=== PATIENT | female | born 1930 | race Caucasian/White ===

== ENCOUNTER 2016-06-05 18:23 | Inpatient (IN) | payer MEDICARE ==
[~2016-06-05] VITALS: Ht 165.1 cm; Wt 54.0 kg
[2016-06-05] MEDS ORDERED: Neosporin Oint Ud Pkt TOP ONE (18:45)
[2016-06-05] MEDS ORDERED: TdaP Vaccine 0.5ml Syr IM ONE (18:45)
[2016-06-05] MEDS ORDERED: fentaNYL 100 mcg/2 mL IV ONE (18:45)
[2016-06-05 19:30] VITALS: BP 90/77
[2016-06-05 19:30] LABS: BASOPHILS % (AUTO) 1.1 % (0.0-2.0); EOSINOPHILS % (AUTO) 0.8 % (0.0-3.0); LYMPHOCYTES % (AUTO) 17.4 % (20.0-45.0); MEAN CORPUSCULAR HEMOGLOBIN 27.3 PG (27.0-31.0); MEAN CORPUSCULAR HGB CONC 33.5 G/DL (32.0-36.0); MEAN CORPUSCULAR VOLUME 82 FL (80-99); MEAN PLATELET VOLUME 6.9 FL (6.5-10.1); MONOCYTES % (AUTO) 11.1 % (1.0-10.0); NEUTROPHILS % (AUTO) 69.6 % (45.0-75.0); PLATELET COUNT 259 K/UL (150-450); RED BLOOD COUNT 4.41 M/UL (4.20-5.40); WHITE BLOOD COUNT 10.9 K/UL (4.8-10.8)
[2016-06-05 19:42] LABS: INR 1.3 (0.9-1.1)
[2016-06-05 19:49] LABS: TROPONIN I < 0.30 ng/mL (<=0.30)
[2016-06-05 19:52] LABS: ALANINE AMINOTRANSFERASE 20 U/L (3-33); ALBUMIN/GLOBULIN RATIO 0.6 (1.0-2.7); ANION GAP 21 (5-15); ASPARTATE AMINO TRANSFERASE 27 U/L (5-40); CALCIUM 10.2 mg/dL (8.6-10.2); CARBON DIOXIDE 21 mEQ/L (20-30); CHLORIDE 95 mEQ/L (98-107); CREATININE 0.9 mg/dL (0.5-0.9); HEMOLYSIS 94; POTASSIUM 4.3 mEQ/L (3.4-4.9); SODIUM 137 mEQ/L (135-145); TOTAL PROTEIN 7.8 g/dL (6.6-8.7)
[2016-06-05] MEDS ORDERED: cefTRIAXone 1 GM in NS 55 ML IVPB ONE (20:30)
[2016-06-05 20:53] LABS: APPEARANCE,URINE CLEAR; KETONES,URINE 3+ (NEGATIVE); LEUKOCYTE ESTERASE ,URINE 3+ (NEGATIVE); NITRITE,URINE POSITIVE (NEGATIVE); PH,URINE 6 (4.5-8.0); PROTEIN,URINE 2+ (NEGATIVE); UROBILINOGEN,URINE 1 MG/DL (0.0-1.0)
[2016-06-05 21:21] LABS: AMORPHOUS SEDIMENT,UR FEW /LPF; BACTERIA,URINE MANY /HPF; SQUAMOUS EPITHELIAL CELL,UR FEW /LPF (NONE/OCC)
[2016-06-05 21:22] LABS: WBC,URINE 40-60 /HPF (0 - 2)
[2016-06-05 21:30] LABS: ICTOTEST NEGATIVE
[2016-06-06 00:35] VITALS: BP 124/71
[2016-06-06 04:15] VITALS: BP 121/67
--- NOTE | 2016-06-06 05:56 | Emergency Room Report ---
History of Present Illness General Chief Complaint: Generalized Weakness Source: Patient Present Illness HPI The patient fell several days ago. She hit her head and has an abrasion there. She is uncertain whether she passed out. She has been weak but able to ambulate with assistance until today. In addition , she states she has back pain when she tries to walk or stand. This is both upper and lower. There is no numbness, localized weakness, incontinence. She has been constipated. No dysuria. Today, she was dizzy when she tried to walk. Denies fever, chills, cough, sore throat, NVD. She denies chest pain or palpitations. Uncertain when last tetanus was. Denies headache now. Allergies: Coded Allergies: MORPHINE (Verified Allergy, Unknown, 06/05/16) PENICILLINS (Verified Allergy, Unknown, 06/05/16) SULFA (SULFONAMIDE ANTIBIOTICS) (Verified Allergy, Unknown, 06/05/16) Uncoded Allergies: Demoral (Allergy, Unknown, 06/05/16) thimersol (Allergy, Unknown, 06/05/16) Patient History Past Medical History: see triage record Past Surgical History: other - breast surgery R, aneurism coil Social History Narrative assisted living - born in [place] Now: No Reviewed Nursing Documentation: PMH: Agreed, PSxH: Agreed Nursing Documentation-PMH Past Medical History Deferred: Pt Cognitively Impaired Hx Cardiac Problems: No Hx COPD: Yes Hx Diabetes: No Hx Cancer: Yes Hx Gastrointestinal Problems: No History Of Psychiatric Problem: Yes - anxiety, depression Hx Neurological Problems: No Review of Systems All Other Systems: negative except mentioned in HPI Physical Exam Vital Signs Date Time Temp Pulse Resp B/P Pulse Ox O2 Delivery O2 Flow Rate FiO2 06/05/16 18:28 80 18 113/86 99 Room Air 06/05/16 19:44 97.1 Sp02 EP Interpretation: reviewed, normal General Appearance: well appearing, no apparent distress, alert, GCS 15 Head: normocephalic, other - abrasion R forehead Eyes: bilateral eye EOMI, bilateral eye PERRL, bilateral eye normal inspection ENT: dry mucus membranes Neck: full range of motion, supple, no bony tend Respiratory: chest non-tender, lungs clear, normal breath sounds Cardiovascular #1: regular rate, rhythm Cardiovascular #2: 2+ radial (R) Gastrointestinal: normal inspection, normal bowel sounds, non tender, no mass, non-distended Musculoskeletal: normal range of motion, pelvis stable, other - upper back and lower back tenderness, not point - worsened with sitting up Neurologic: alert, motor strength/tone normal, DTRs symmetric, sensory intact, cerebellar normal, speech normal, oriented - X2 knows president Psychiatric: mood/affect normal, other - some recent memory loss Skin: warm/dry, abrasions - R forehead Medical Decision Making Diagnostic Impression: Primary Impression: Fall Qualified Codes: W19.XXXA - Unspecified fall, initial encounter Additional Impressions: Concussion Qualified Codes: S06.0X0A - Concussion without loss of consciousness, initial encounter UTI (urinary tract infection) Qualified Codes: N30.00 - Acute cystitis without hematuria Right pulmonary infiltrate on CXR ER Course The patient presents post fall with weakness, dizziness and back pain. DDx: CVA , bleed, subdural, back fx, contusions, concussion, occult infection, dehydration amongst others. Complex patient. Emergent evaluation with labs, EKG, CXR, CT head, back. Treatment with IV hydration and analgesia. Patient given tetanus. Refuses gallego. Labs remarkable for UTI. CXR with possible infiltrate. CTs with djd no fx. CT head with involutional changes. Antibiotics begun for UTI and infiltrate. No pulmonary symptoms (h/o breast ca) . Patient still weak. Unable to return to assisted living. Admit tele Dr. Macdonald. Laboratory Tests Test 06/05/16 19:11 06/05/16 20:30 White Blood Count 10.9 K/UL (4.8-10.8) H Red Blood Count 4.41 M/UL (4.20-5.40) Hemoglobin 12.1 G/DL (12.0-16.0) Hematocrit 36.0 % (37.0-47.0) L Mean Corpuscular Volume 82 FL (80-99) Mean Corpuscular Hemoglobin 27.3 PG (27.0-31.0) Mean Corpuscular Hemoglobin Concent 33.5 G/DL (32.0-36.0) Red Cell Distribution Width 13.0 % (11.6-14.8) Platelet Count 259 K/UL (150-450) Mean Platelet Volume 6.9 FL (6.5-10.1) Neutrophils (%) (Auto) 69.6 % (45.0-75.0) Lymphocytes (%) (Auto) 17.4 % (20.0-45.0) L Monocytes (%) (Auto) 11.1 % (1.0-10.0) H Eosinophils (%) (Auto) 0.8 % (0.0-3.0) Basophils (%) (Auto) 1.1 % (0.0-2.0) Prothrombin Time 13.0 SEC (9.30-11.50) H Prothrombin Time INR 1.3 (0.9-1.1) H PTT 24 SEC (23-33) Sodium Level 137 mEQ/L (135-145) Potassium Level 4.3 mEQ/L (3.4-4.9) Chloride Level 95 mEQ/L (98-107) L Carbon Dioxide Level 21 mEQ/L (20-30) Anion Gap 21 (5-15) H Blood Urea Nitrogen 19 mg/dL (7-23) Creatinine 0.9 mg/dL (0.5-0.9) Estimate Glomerular Filtration Rate mL/min (>60) Glucose Level 113 mg/dL (74-106) H Calcium Level 10.2 mg/dL (8.6-10.2) Total Bilirubin 0.6 mg/dL (0.0-1.2) Aspartate Amino Transferase (AST) 27 U/L (5-40) Alanine Aminotransferase (ALT) 20 U/L (3-33) Alkaline Phosphatase 132 U/L (35-104) H Total Creatine Kinase 29 U/L (26-140) Troponin I < 0.30 ng/mL (<=0.30) Pro-B-Type Natriuretic Peptide 162 pg/mL (0-450) Total Protein 7.8 g/dL (6.6-8.7) Albumin 3.0 g/dL (3.5-5.2) L Globulin 4.8 g/dL Albumin/Globulin Ratio 0.6 (1.0-2.7) L Urine Color Yellow Urine Appearance Clear Urine pH 6 (4.5-8.0) Urine Specific [place] 1.020 (1.005-1.035) Urine Protein 2+ (NEGATIVE) H Urine Glucose (UA) Negative (NEGATIVE) Urine Ketones 3+ (NEGATIVE) H Urine Occult Blood 2+ (NEGATIVE) H Urine Nitrite Positive (NEGATIVE) H Urine Bilirubin 1+ (NEGATIVE) H Urine Ictotest Negative Urine Urobilinogen 1 MG/DL (0.0-1.0) H Urine Leukocyte Esterase 3+ (NEGATIVE) H Urine RBC 10-15 /HPF (0 - 2) H Urine WBC 40-60 /HPF (0 - 2) H Urine Squamous Epithelial Cells Few /LPF (NONE/OCC) Urine Amorphous Sediment Few /LPF (NONE) H Urine Bacteria Many /HPF (NONE) H EKG Diagnostic Results Rate: normal Rhythm: NSR ST Segments: no acute changes ASA given to the pt in ED: Yes Rhythm Strip Diag. Results EP Interpretation: yes Rhythm: NSR, no PVC's, no ectopy Chest X-Ray Diagnostic Results EP Interpretation: Yes Findings: no effusion, no pneumothorax, other - clips R and infiltrate Number of Views: 1 CT/MRI/US Diagnostic Results CT/MRI/US Diagnostic Results #1: Imaging Test Ordered: t spine Impression djd and R infiltrate Findings: There is mild dextroscoliotic deformity of the thoracic spine with compensatory curvature at the cervicothoracic junction. Bony alignment is otherwise normal. There is no evidence of acute fracture or dislocation. Other than some degenerative remodeling, the vertebral body heights are preserved. There is extensive multilevel disc degeneration with near complete obliteration of multiple disc spaces. No significant disc bulge or protrusion, spinal stenosis, or neural foraminal stenosis demonstrated. The included portions of the lungs demonstrate fairly extensive fibrotic change, scarring, and/or atelectasis. Incidentally noted is a 2 cm right renal cyst. Impression: No acute bony trauma Degenerative changes, as described Fairly extensive pulmonary parenchymal disease, acuity indeterminate. Incidental finding of right renal cyst CT/MRI/US Diagnostic Results #2: Imaging Test Ordered: L spine Impression djd Findings: There is lumbar levoscoliotic deformity. Otherwise normal bony alignment. No acute fractures. No dislocations. Vertebral body heights are preserved. There is extensive multilevel degenerative disc narrowing with vacuum formation. There is degenerative neural foraminal narrowing at L1-2 on the right. There is mild spinal stenosis due to facet hypertrophy and short pedicles at L3-4. There is mild spinal stenosis at L4-5 due to facet and ligamentum flavum hypertrophy. 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 Impression: No acute bony trauma Degenerative changes as described CT/MRI/US Diagnostic Results #3: Imaging Test Ordered: head Impression involutional changes Impression: Chronic and age-related changes as described Evidence of prior aneurysm coiling. Correlate with surgical history Negative for acute intracranial bleed or mass effect Last Vital Signs Date Time Temp Pulse Resp B/P Pulse Ox O2 Delivery O2 Flow Rate FiO2 06/06/16 04:15 97.5 100 20 121/67 96 Room Air Status: improved Disposition: ADMITTED INPATIENT Condition: Serious Referrals: THIEN MACDONALD (PCP) Vidal Lester M.D. Jun 06, 2016 05:56
[2016-06-06 08:09] VITALS: BP 125/76
[2016-06-06 08:21] LABS: BASOPHILS % (AUTO) 0.8 % (0.0-2.0); EOSINOPHILS % (AUTO) 1.1 % (0.0-3.0); LYMPHOCYTES % (AUTO) 17.6 % (20.0-45.0); MEAN CORPUSCULAR HEMOGLOBIN 26.7 PG (27.0-31.0); MEAN CORPUSCULAR HGB CONC 32.9 G/DL (32.0-36.0); MEAN CORPUSCULAR VOLUME 81 FL (80-99); MEAN PLATELET VOLUME 6.7 FL (6.5-10.1); MONOCYTES % (AUTO) 11.8 % (1.0-10.0); NEUTROPHILS % (AUTO) 68.8 % (45.0-75.0); PLATELET COUNT 332 K/UL (150-450); RED BLOOD COUNT 4.42 M/UL (4.20-5.40)
[2016-06-06 08:56] LABS: ALANINE AMINOTRANSFERASE 18 U/L (3-33); ALBUMIN/GLOBULIN RATIO 0.6 (1.0-2.7); ANION GAP 21 (5-15); ASPARTATE AMINO TRANSFERASE 19 U/L (5-40); CALCIUM 10.2 mg/dL (8.6-10.2); CARBON DIOXIDE 21 mEQ/L (20-30); CHLORIDE 95 mEQ/L (98-107); CREATININE 0.9 mg/dL (0.5-0.9); HEMOLYSIS 0; POTASSIUM 3.7 mEQ/L (3.4-4.9); SODIUM 137 mEQ/L (135-145); TOTAL PROTEIN 7.7 g/dL (6.6-8.7)
[2016-06-06] MEDS ORDERED: Dabigatran 150mg cap ORAL SCH (09:00)
[2016-06-06] MEDS: Aspirin EC 81mg tab ORAL SCH (09:14)
[2016-06-06] MEDS: Lisinopril 2.5mg tab ORAL SCH (09:14)
[2016-06-06] MEDS: Advair 250/50 Inhaler - 14 dose INH SCH ×2 (09:39→19:52)
--- NOTE | 2016-06-06 09:44 | Diagnostic Imaging Report ---
Indications: Pain, weakness Technique: Spiral acquisitions obtained through the brain. Angled axial and coronal 5 x 5 mm slices were reconstructed. Total dose length product 1376 mGycm. CTDI vol(s) 70 mGy Comparison: Findings: Left supraclinoid metallic density likely represents aneurysm coils. No evidence of acute hemorrhage or edema. No mass effect or midline shift. There is age-related enlargement of ventricles and extra-axial CSF spaces. Normal russo-white differentiation. Intact calvarium. Visualized orbits and sinuses are unremarkable. Impression: Chronic and age-related changes as described Evidence of prior aneurysm coiling. Correlate with surgical history Negative for acute intracranial bleed or mass effect This agrees with the preliminary interpretation provided overnight by Dr. Boucher The CT scanner at [facility] is accredited by the [employer] and the scans are performed using protocols designed to limit radiation exposure to as low as reasonably achievable to attain images of sufficient resolution adequate for diagnostic evaluation.
--- NOTE | 2016-06-06 09:44 | Diagnostic Imaging Report ---
Indication: Weakness Technique: Spiral acquisitions obtained through the thoracic spine. No IV contrast utilized. Multiplanar reconstructions were generated. Total dose length product 751 mGycm. CTDIvol(s) 23 mGy Comparison: None Findings: There is mild dextroscoliotic deformity of the thoracic spine with compensatory curvature at the cervicothoracic junction. Bony alignment is otherwise normal. There is no evidence of acute fracture or dislocation. Other than some degenerative remodeling, the vertebral body heights are preserved. There is extensive multilevel disc degeneration with near complete obliteration of multiple disc spaces. No significant disc bulge or protrusion, spinal stenosis, or neural foraminal stenosis demonstrated. The included portions of the lungs demonstrate fairly extensive fibrotic change, scarring, and/or atelectasis. Incidentally noted is a 2 cm right renal cyst. Impression: No acute bony trauma Degenerative changes, as described Fairly extensive pulmonary parenchymal disease, acuity indeterminate. Incidental finding of right renal cyst This agrees with the preliminary interpretation provided overnight by Dr. Boucher The CT scanner at [facility] is accredited by the [employer] and the scans are performed using protocols designed to limit radiation exposure to as low as reasonably achievable to attain images of sufficient resolution adequate for diagnostic evaluation.
--- NOTE | 2016-06-06 09:44 | Diagnostic Imaging Report ---
Indications: Pain, weakness Technique: Spiral acquisitions obtained through the lumbar spine. Multiplanar reconstructions were generated. No IV contrast utilized. Total dose length product 442 mGycm. CTDIvol(s) 17 mGy Comparison: None Findings: There is lumbar levoscoliotic deformity. Otherwise normal bony alignment. No acute fractures. No dislocations. Vertebral body heights are preserved. There is extensive multilevel degenerative disc narrowing with vacuum formation. There is degenerative neural foraminal narrowing at L1-2 on the right. There is mild spinal stenosis due to facet hypertrophy and short pedicles at L3-4. There is mild spinal stenosis at L4-5 due to facet and ligamentum flavum hypertrophy. 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 Impression: No acute bony trauma Degenerative changes as described This agrees with the preliminary interpretation provided overnight by Dr. Boucher The CT scanner at [facility] is accredited by the [employer] and the scans are performed using protocols designed to limit radiation exposure to as low as reasonably achievable to attain images of sufficient resolution adequate for diagnostic evaluation.
[2016-06-06] MEDS: guaiFENesin DM 100mg/5ml ORAL PRN (11:23)
[2016-06-06 11:29] VITALS: BP_SYST 114; BP_SYST 125; BP_DIAS 82; BP_DIAS 86
--- NOTE | 2016-06-06 11:54 | Diagnostic Imaging Report ---
Indication: TRAUMA Technique: One view of the chest Comparison: none Findings: Nonspecific interstitial and alveolar opacities are seen in the right midlung. The pleural spaces are clear. The left lung is clear. Is elevation of the left hemidiaphragm. There are right axillary surgical clips. Impression: Nonspecific parenchymal infiltrates and the right lung. Presumably correlating to findings in this area on recent thoracic spine CT Evidence of prior right axillary node dissection This agrees with the preliminary interpretation provided by the emergency room physician
[2016-06-06] MEDS ORDERED: DuoNeb 0.5-3(2.5)mg/3ml neb HHN PRN (13:15)
[2016-06-06] MEDS ORDERED: Acetaminophen 500mg (ES) tab ORAL PRN (13:15)
[2016-06-06] MEDS ORDERED: HYDROmorphone 1mg/ml Carpuject IM PRN (13:15)
[2016-06-06] MEDS ORDERED: Hydromorphone 0.5mg/0.5ml inj IM ONE (13:20)
[2016-06-06] MEDS ORDERED: HYDROmorphone 1mg/ml Carpuject IVP PRN (13:38)
[2016-06-06] MEDS ORDERED: Hydromorphone 0.5mg/0.5ml inj IVP ONE (13:45)
--- NOTE | 2016-06-06 15:42 | Internal Med Progress Note ---
Subjective Physician Name Poornima Macdonald Attending Physician Poornima Macdonald Current Medications Medications (Trade) Dose Ordered Sig/Marco Route PRN Reason Start Time Stop Time Status Last Admin Dose Admin Acetaminophen (Tylenol) 500 mg Q6H PRN ORAL Mild Pain/Temp > 100.5 06/06/16 13:15 07/06/16 13:14 Albuterol/ Ipratropium (DuoNeb 0.5-3(2.5)mg/3ml) 3 ml Q4H PRN HHN Shortness of Breath 06/06/16 13:15 06/11/16 13:14 Aspirin (Ecotrin) 81 mg DAILY ORAL 06/06/16 09:00 07/06/16 08:59 06/06/16 09:14 Dabigatran (Pradaxa) 150 mg EVERY 12 HOURS ORAL 06/06/16 09:33 07/06/16 08:59 Guaifenesin/ Dextromethorphan (Robitussin DM) 5 ml Q4H PRN ORAL For Cough 06/06/16 10:45 07/06/16 10:44 06/06/16 11:23 Hydromorphone HCl (Dilaudid) 0.8 mg ONCE PRN IVP PRIOR TO MRI 06/06/16 13:38 06/06/16 23:59 Lisinopril (Zestril) 2.5 mg DAILY ORAL 06/06/16 09:00 07/06/16 08:59 06/06/16 09:14 Mirtazapine (Remeron) 15 mg BEDTIME ORAL 06/06/16 21:00 07/06/16 20:59 Salmeterol Xinafoate/ Fluticasone (Advair 250/50 Diskus) 1 puffs BID INH 06/06/16 09:00 07/06/16 08:59 06/06/16 09:39 Thyroid (Baxter Thyroid) 60 mg DAILY ORAL 06/06/16 09:00 07/06/16 08:59 06/06/16 09:14 Tiotropium [place] (Spiriva Inhaler) 1 puff DAILY INH 06/06/16 09:00 07/06/16 08:59 06/06/16 09:39 Allergies: Coded Allergies: MORPHINE (Verified Allergy, Unknown, 06/05/16) PENICILLINS (Verified Allergy, Unknown, 06/05/16) SULFA (SULFONAMIDE ANTIBIOTICS) (Verified Allergy, Unknown, 06/05/16) Uncoded Allergies: Demoral (Allergy, Unknown, 06/05/16) thimersol (Allergy, Unknown, 06/05/16) Subjective PLS AEE DICTATED H aND P Objective Last Vital Signs Date Time Temp Pulse Resp B/P Pulse Ox O2 Delivery O2 Flow Rate FiO2 06/06/16 12:00 115 06/06/16 11:29 96.8 18 114/82 99 Room Air 06/06/16 09:44 21 Laboratory Tests Test 06/05/16 19:11 06/05/16 20:30 06/06/16 06:43 White Blood Count 10.9 K/UL (4.8-10.8) H 11.0 K/UL (4.8-10.8) H Red Blood Count 4.41 M/UL (4.20-5.40) 4.42 M/UL (4.20-5.40) Hemoglobin 12.1 G/DL (12.0-16.0) 11.8 G/DL (12.0-16.0) L Hematocrit 36.0 % (37.0-47.0) L 35.9 % (37.0-47.0) L Mean Corpuscular Volume 82 FL (80-99) 81 FL (80-99) Mean Corpuscular Hemoglobin 27.3 PG (27.0-31.0) 26.7 PG (27.0-31.0) L Mean Corpuscular Hemoglobin Concent 33.5 G/DL (32.0-36.0) 32.9 G/DL (32.0-36.0) Red Cell Distribution Width 13.0 % (11.6-14.8) 13.0 % (11.6-14.8) Platelet Count 259 K/UL (150-450) 332 K/UL (150-450) Mean Platelet Volume 6.9 FL (6.5-10.1) 6.7 FL (6.5-10.1) Neutrophils (%) (Auto) 69.6 % (45.0-75.0) 68.8 % (45.0-75.0) Lymphocytes (%) (Auto) 17.4 % (20.0-45.0) L 17.6 % (20.0-45.0) L Monocytes (%) (Auto) 11.1 % (1.0-10.0) H 11.8 % (1.0-10.0) H Eosinophils (%) (Auto) 0.8 % (0.0-3.0) 1.1 % (0.0-3.0) Basophils (%) (Auto) 1.1 % (0.0-2.0) 0.8 % (0.0-2.0) Prothrombin Time 13.0 SEC (9.30-11.50) H Prothromb Time International Ratio 1.3 (0.9-1.1) H Activated Partial Thromboplast Time 24 SEC (23-33) Sodium Level 137 mEQ/L (135-145) 137 mEQ/L (135-145) Potassium Level 4.3 mEQ/L (3.4-4.9) 3.7 mEQ/L (3.4-4.9) Chloride Level 95 mEQ/L (98-107) L 95 mEQ/L (98-107) L Carbon Dioxide Level 21 mEQ/L (20-30) 21 mEQ/L (20-30) Anion Gap 21 (5-15) H 21 (5-15) H Blood Urea Nitrogen 19 mg/dL (7-23) 18 mg/dL (7-23) Creatinine 0.9 mg/dL (0.5-0.9) 0.9 mg/dL (0.5-0.9) Estimat Glomerular Filtration Rate mL/min (>60) mL/min (>60) Glucose Level 113 mg/dL (74-106) H 99 mg/dL (74-106) Calcium Level 10.2 mg/dL (8.6-10.2) 10.2 mg/dL (8.6-10.2) Total Bilirubin 0.6 mg/dL (0.0-1.2) 0.4 mg/dL (0.0-1.2) Aspartate Amino Transf (AST/SGOT) 27 U/L (5-40) 19 U/L (5-40) Alanine Aminotransferase (ALT/SGPT) 20 U/L (3-33) 18 U/L (3-33) Alkaline Phosphatase 132 U/L (35-104) H 125 U/L (35-104) H Total Creatine Kinase 29 U/L (26-140) Troponin I < 0.30 ng/mL (<=0.30) Pro-B-Type Natriuretic Peptide 162 pg/mL (0-450) Total Protein 7.8 g/dL (6.6-8.7) 7.7 g/dL (6.6-8.7) Albumin 3.0 g/dL (3.5-5.2) L 2.9 g/dL (3.5-5.2) L Globulin 4.8 g/dL 4.8 g/dL Albumin/Globulin Ratio 0.6 (1.0-2.7) L 0.6 (1.0-2.7) L Urine Color Yellow Urine Appearance Clear Urine pH 6 (4.5-8.0) Urine Specific [place] 1.020 (1.005-1.035) Urine Protein 2+ (NEGATIVE) H Urine Glucose (UA) Negative (NEGATIVE) Urine Ketones 3+ (NEGATIVE) H Urine Occult Blood 2+ (NEGATIVE) H Urine Nitrite Positive (NEGATIVE) H Urine Bilirubin 1+ (NEGATIVE) H Urine Ictotest Negative Urine Urobilinogen 1 MG/DL (0.0-1.0) H Urine Leukocyte Esterase 3+ (NEGATIVE) H Urine RBC 10-15 /HPF (0 - 2) H Urine WBC 40-60 /HPF (0 - 2) H Urine Squamous Epithelial Cells Few /LPF (NONE/OCC) Urine Amorphous Sediment Few /LPF (NONE) H Urine Bacteria Many /HPF (NONE) H Vitamin B12 Level 1092 pg/mL (211-946) H Vitamin D 25-Hydroxy Pending 25-Hydroxy Vitamin D2 Pending 25-Hydroxy Vitamin D3 Pending Thyroid Stimulating Hormone (TSH) 2.430 uIU/mL (0.300-4.500) Intake and Output 06/05/16 06/06/16 19:00 07:00 Intake Total 120 ml Balance 120 ml Intake Oral 120 ml # Voids 3 POORNIMA MACDONALD Jun 06, 2016 15:42
[2016-06-06 16:00] VITALS: BP 111/73
[2016-06-06 20:00] VITALS: BP 100/62
--- NOTE | 2016-06-06 21:17 | Consultation ---
Consult Note Consult Note NEUROLOGY CONSULTATION: Full note dictated #[id number] 85 y/o, RH, CF who has a PH of breast cancer s/p mastectomy, a cerebral aneurysm s/p L ICA coil. About 3 days [employer] she fell down and bumped the right side of her head. She denies any LOC. However she remembers no detail of the fall. ON EXAM: Problems with orientation, recent and remote memory, VS function, HC function and language. No definite focal dysfunction. Globally diminished reflexes and decreased position sense in LE. Refused to get out of bed. IMPRESSION: 85 y/o, RH, CF with PH of breast cancer, dementia, and now frequent falls. Unable to determine exact reason for falls as she would not cooperate for stance & gait testing. Brain CT with no acute path. Brain MRI not available for review. UTI REC: W/U for neuropathy which could be contributing to falls. Will review MRI when available. PT/OT to mobilize. Rx of UTI as per Dr. Erica Bocanegra M.D., M.S.P.AMY AVERY Jun 06, 2016 21:17
--- NOTE | 2016-06-06 21:58 | History and Physical Report ---
DATE OF ADMISSION: 06/05/2016 CHIEF COMPLAINT: Weakness and malaise. HISTORY OF PRESENT ILLNESS: Briefly, this is an 85-year-old female who has multiple medical problems. She lives at an assisted living because of her dementia. 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 She had fallen and she had an abrasion on her forehead, and he called paramedics and she was brought to the [place] emergency room. In the emergency room, she underwent a CT scan, which showed no acute hemorrhage or stroke. She was then admitted to the floor for further evaluation. The patient remembers that she fell. She does not think that she passed out, but her history is unreliable. She hit her head as mentioned above and sustained an abrasion on her right forehead. She does not recall that if she had palpitations prior to the fall. She does not remember whether she tripped and fell. PAST MEDICAL HISTORY: 1. Left retinal hemorrhage, felt to be unrelated to anticoagulation in September of 2015. 2. SVT. 3. Presumed carcinoma of the lung, right upper lobe, status post presumptive XRT. 4. COPD. 5. Cognitive impairment. 6. Right breast cancer. 7. GERD. 8. Hypothyroidism. 9. Likely sleep apnea, untreated. 10. Aneurysm of the right internal carotid, status post coil. 11. 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 David Rockwell. 12. Right pulmonary embolism in June 2015 with right DVT. 13. Radiation pneumonitis. 14. Glaucoma, on eye drops. 15. Status post mastectomy and reconstruction of the right breast in 1984 for stage III right breast cancer. 16. Status post appendectomy at age 16. 17. Status post in her early 20s. 18. Status post pelvic mesh. 19. 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 SOCIAL HISTORY: The patient was born in [facility]. She moved to [place] in the 1959. She has been for many years. She is retired from [employer]. She lives at [facility]. Her shelter [employer] pumping supervisor is Marquis White. She smoked from the age of 12 to 62 approximately one pack per day for approximately 50 pack years. She denies alcohol use. FAMILY HISTORY: The mother in her 70s of unknown cause. Her father from lung cancer. He also had a history of acute [place]. He was a smoker. The patient has one brother who is 80. He is alive, but the patient has no contact with him. He does, however, discuss her care with the shelter hospital insurance representative. The patient did have a paternal aunt and a maternal grandmother with breast cancer. She is Ashkenazi Faith. Her birthday status is not known to me at this time. ALLERGIES: To penicillin, which caused anaphylaxis; Demerol, which caused nausea; sulfa, which caused itching; and thimerosal, which caused itching and swelling. MEDICATIONS: Medication list is not complete, but is felt to include Pradaxa 150 mg b.i.d., Advair 250 mcg one puff b.i.d., Tylenol, Combigan 0.2/0.5% one drop each eye b.i.d., Celexa 20 mg daily, DSS 100 mg b.i.d., Motrin p.r.n., Xalatan drops 0.005% one drop to both eyes at bedtime, Zestril 2.5 mg daily to two times a day, Claritin 10 mg daily, Remeron 15 mg at bedtime, [place] Thyroid 60 mg daily, and Nasacort AQ. REVIEW OF SYSTEMS: HEENT: The patient does note the nasal congestion. She denies any visual changes, hearing problems, or sore throat. Respiratory: She denies any wheezing. She does have a dry cough, and she does have chronic shortness of breath, which has not changed for many months. This has been noted for approximately one year since she had pulmonary embolism. Cardiovascular: She denies any palpitations, chest pains, or edema. Gastrointestinal: She does not some nausea today. No vomiting, diarrhea, or constipation. Skin: No rashes. Musculoskeletal: She does note some foot pain. She does not know how long she has had it or whether she might have injured herself during her fall. PHYSICAL EXAMINATION: VITAL SIGNS: Temperature is 97.1, blood pressure 114/82, pulse 115, respirations 18, and O2 saturation 98% on room air. HEENT: There is a right forehead abrasion, which has some eschar on it. Pupils are equal, round, and reactive to light. Sclerae are anicteric. Oropharynx without lesions. NECK: Supple without adenopathy. There are no bruits. CHEST: Clear to auscultation. CARDIOVASCULAR: Regular rate and rhythm. Normal S1 and S2. There is a 2/6 systolic murmur heard throughout the precordium. ABDOMEN: Positive bowel sounds. Soft and nontender. No hepatosplenomegaly. EXTREMITIES: No clubbing, cyanosis, or edema. The right foot reveals some tenderness around the first metatarsal PIP joint area. The area of pain is vague. The patient has pain when I tried to flex her foot or rotate her foot. Her left foot is paler and cooler than her right foot. Pulses are 1+ bilateral in the DPs. MENTAL STATUS EXAM: The patient is not oriented to place, day, date, or year. She is able to name the current and the last two presidents, although she did get Pablo Woodard, but not Sudeep Uriostegui. She was able to spell 'world' backwards without any difficulty. She was able to repeat no ifs, ands, or buts. She was able to name quite accurately. She was able to recall three items at approximately three minutes. LABORATORY AND DIAGNOSTIC DATA: Chest x-ray shows some chronic right interstitial changes. She does not look worse than her previous films noted at [facility]. Her EKG shows sinus tachycardia at 107. There is left atrial enlargement. There is incomplete right bundle branch block and a left anterior fascicular block. There are no acute changes. CT of the brain shows no acute CVA or hemorrhage. She does have a metallic implant, felt to be a coil in the right ICA, supracarinal area. CBC was slightly elevated, 10.9 on admission and 11 this morning. Vitamin B12 is elevated to 1092. TSH is normal at 2.4. IMPRESSION: 1. Weakness. 2. Falls. 3. Aneurysm, rule out change. 4. Status post coil of right internal carotid artery. 5. History of deep venous thrombosis and pulmonary embolism. 6. History of palpable lung cancer. 7. Right breast cancer. 8. Right foot pain, rule out fracture. 9. Cognitive impairment. 10. History of supraventricular tachycardia. 11. Chronic obstructive pulmonary disease. 12. Hypothyroidism. PLAN: 1. MRI of the brain with and without contrast, and MRA of the brain. 2. Carotid duplex. 3. A 2D echo was ordered and done and is grossly unremarkable, but it is a poor study. 4. Right foot x-ray. 5. PT and OT. 6. Cardiology evaluation to rule out arrhythmia. 7. Cardiac monitoring. 8. Neurological evaluation. The case will be discussed with Marquis White from [facility]. The patient may require SNF for PT and OT following this admission. Poornima Maldonado M.D. DR: BROCK JOB#: [id number] CC:
[2016-06-07 00:34] VITALS: BP 105/66
--- NOTE | 2016-06-07 01:48 | Consultation ---
DATE OF CONSULTATION: 06/06/2016 NEUROLOGY CONSULTATION REQUESTING PHYSICIAN: Poornima Maldonado M.D. HISTORY: Ms. Elvie Florentino is an 85-year-old, right-handed lady, who does have a past history of breast cancer status post mastectomy, a cerebral aneurysm status post left internal carotid artery coil and dementia. She was functioning relatively well until 3 days prior to admission when she apparently fell down and bumped the right side of her head. She denies any loss of consciousness. However, she remembers no details of the fall. According to the note in her chart, she has been sustaining frequent falls. This consultation was requested by Dr. Maldonado to evaluate the patient for her frequent falls. The patient denied any weakness on one side or the other, numbness on one side or the other, problems with speech, problems with language, problems with vision, or problems with memory. PAST MEDICAL HISTORY: Significant for breast cancer status post mastectomy, cerebral aneurysm status post left internal carotid artery coil and dementia. FAMILY HISTORY: Nothing significant as per the patient, but quite unreliable. PERSONAL HISTORY: Home: She lives in an assisted living facility. 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 Habits: She used to smoke in the past, but stopped smoking numerous years ago. She would have a rare alcoholic drink in the past, but has not had a drink for numerous years. She denies use of any illicit drugs. PRESENT MEDICATIONS: Mirtazapine, Dilaudid, Tylenol, DuoNeb, Robitussin, Pradaxa, aspirin, Advair, Zestril, [place] Thyroid, and Spiriva. She did get a dose of ceftriaxone earlier. PHYSICAL EXAMINATION: GENERAL: She is a well-developed, well-nourished, lady, lying in bed, in no acute distress. VITAL SIGNS: Pulse 98 per minute, blood pressure 100/62 mmHg, respirations 20 per minute, and temperature 97.7 degrees Fahrenheit. HEAD: Normocephalic with right frontal aberration and right infraorbital aberration. NECK: No nuchal rigidity was observed. EENT: Benign. NEUROLOGICAL EXAMINATION: MENTAL STATUS EXAMINATION: She was alert and awake. She was oriented to [facility], [facility], and May. She did not know the date or the year. She was able to recall 3/3 words immediately, but could only remember 1/3 words in 1 minute and 3 minutes. She was able to remember presidents Trump and Obama, but could not remember presidents prior to that. Her mathematical skills were impaired. Her visuospatial function was also impaired. SPEECH: She had no dysarthria. LANGUAGE: She had anomia for low-frequency words. CRANIAL NERVE EXAMINATION: II: The visual sears were intact to confrontation testing. III, IV & : The external ocular movements were full and the pupils 3 mm in diameter, equal, round, regular and reactive to light. V: She had normal facial sensations and the temporales, masseters, and pterygoids functioned normally. VII: She had normal facial expressions and no facial asymmetry. VIII: She was able to hear well bilaterally and had no nystagmus. IX: The palate moved symmetrically on phonation. X: She had no hoarseness of voice. XI: The sternocleidomastoids and trapezii functioned normally. XII: The tongue was in the midline without any fasciculations or atrophy. MOTOR SYSTEM: The tone was normal in all four extremities. Examination of muscle mass revealed some wasting of the small hand and foot muscles. Examination of power revealed grade 5/5 power except for grade 4+/5 power in the iliopsoas muscles bilaterally. SENSORY EXAMINATION: She had intact sensations to pinprick, light touch, and graphesthesia. Position sense was diminished in the toes bilaterally but was normal in the fingers bilaterally. COORDINATION: She performed well on [id number]-mt-[id number] testing. She was unable to perform zgcf-ti-noiz testing. REFLEXES: 1+ and bilaterally symmetrical at the biceps, triceps, and brachioradialis. Trace positive at both knees. 0 at both ankles. The plantar responses were flexor bilaterally. STANCE & GAIT: Could not be tested because she refused to try to stand up or walk. DIAGNOSTIC IMPRESSION: 1. Ms. 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 She has recently been having frequent falls and she was hospitalized on 06/05/2016 a few days after a fall due to behavioral problems. 2. On neurological examination at this time, she does demonstrate significant problems with orientation, recent and remote memory, visuospatial function, higher cognitive function and language. She also has proximal lower extremity weakness, decreased position sense in the toes bilaterally, globally diminished deep tendon reflexes and refusal to get out of bed, stand and walk. 3. The CT scan of the brain without contrast reveals no acute pathology, and no acute hemorrhage, but does reveal a left-sided coil. 4. An MRI scan of the brain has been done, however, the images are unavailable to review on the computer system. 5. Her latest laboratory data revealed that she does have leukocytosis with a WBC count of 11,000. She has mild anemia with a hemoglobin of 11.8. The chemistry panel reveals low albumin at 2.9, normal vitamin B12 level, normal TSH, and vitamin D level that is pending. The Urinalysis revealed 3+ leukocyte esterase, 10-15 red blood cells, and 40-60 white blood cells per high-power field and many urinary bacteria. 6. At this point in time, it is unclear as to what exactly is causing her frequent falls. She did not cooperate for testing of stance and gait and thus it is quite difficult to determine if she has a gait disorder and if so what kind of gait disorder she has. RECOMMENDATIONS: 1. Agree with management thus far. 2. Agree with treating the patient's acute infectious process in an aggressive manner. 3. I shall review the patient's MRI scan when it becomes available. 4. She should be worked up thoroughly for treatable causes of neuropathy, which could be contributing to her falls. 5. Attempts will be made to stand her up and walk her tomorrow. 6. She should be started on a course of physical and occupational therapy. 7. Depending on how she fares over the next day or so further recommendations will be given. Thank you for entrusting me with the care of Ms. Florentino. I shall follow her with you. Chris Bocanegra M.D., M.S.P.H. DR: MEGHAN JOB#: [id number] AC
[2016-06-07] MEDS ORDERED: CARDIZEM60 MG ORAL (03:50)
[2016-06-07] MEDS ORDERED: LORATADINE10 M2 PO (03:50)
[2016-06-07] MEDS ORDERED: SPIRIVA INHALE1 PUF1 INH (03:50)
[2016-06-07] MEDS ORDERED: ZANTAC150 MG ORAL (03:50)
[2016-06-07] MEDS ORDERED: DOCUSATE SODIU100 MG ORAL (03:50)
[2016-06-07] MEDS ORDERED: MIRALAX17 G2 ORAL (03:50)
[2016-06-07] MEDS ORDERED: TYLENOL650 MG/20. ORAL (03:50)
[2016-06-07] MEDS ORDERED: LATANOPROST2.5 ML BOTH EYES (03:50)
[2016-06-07] MEDS ORDERED: LISINOPRIL2.5 MG ORAL (03:50)
[2016-06-07] MEDS ORDERED: NASACORT10.8 ML INH (03:50)
[2016-06-07] MEDS ORDERED: ASPIRIN81 MG ORAL (03:50)
[2016-06-07] MEDS ORDERED: TUSSIN CHE100 MG/5 M PO ×2 (03:50)
[2016-06-07] MEDS ORDERED: ADVAIR 250-501 EACH INH (03:50)
[2016-06-07] MEDS ORDERED: AZELASTINE137 MCG/0. NS (03:50)
[2016-06-07] MEDS ORDERED: COMBIGAN EYE DRO5 ML OP (03:50)
[2016-06-07] MEDS ORDERED: MIRTAZAPINE15 M3 ORAL (03:50)
[2016-06-07] MEDS ORDERED: PROBIOTIC1 EAC2 PO (03:50)
[2016-06-07] MEDS ORDERED: IPRATROPIU0.2 MG/1 M HHN (03:50)
[2016-06-07 04:24] VITALS: BP 129/72
[2016-06-07 07:51] VITALS: BP 100/73
[2016-06-07] MEDS: Aspirin EC 81mg tab ORAL SCH (08:55)
[2016-06-07] MEDS: Lisinopril 2.5mg tab ORAL SCH ×2 (08:57→08:58)
[2016-06-07] MEDS: guaiFENesin DM 100mg/5ml ORAL PRN (08:59)
--- NOTE | 2016-06-07 09:39 | Diagnostic Imaging Report ---
APPROVED REPORT CPT Code: 30753 Vascular Symptoms Comments: Fall Doppler Spectral Velocity Analysis RightLeft RIGHT SIDE: CCA - Imaging reveals no significant plaque within the extracranial carotid arteries. The Doppler spectral flow analysis is within normal limits throughout the extracranial carotid arteries. VERTEBRAL - The vertebral artery is patent, without evidence of stenosis or steal. LEFT SIDE: CCA/BULB- Imaging reveals irregular, minimal plaque in the carotid bulb and external carotid arteries. VERTEBRAL - The vertebral artery is patent, without evidence of stenosis or steal.
[2016-06-07] MEDS: Advair 250/50 Inhaler - 14 dose INH SCH ×2 (09:43→19:39)
[2016-06-07 11:19] VITALS: BP 144/78
--- NOTE | 2016-06-07 12:05 | Diagnostic Imaging Report ---
Indication: Head trauma Technique: 3-D [id number] of the brain Comparison: None Findings: No significant stenosis, vascular malformation, or aneurysm is identified. Flow-related enhancement of the major intracranial arteries demonstrated including the anterior, middle, and posterior cerebral arteries. There is a prominent right posterior communicating artery. The study is significantly degraded by motion. Impression: Negative MRA of the brain. Limited study due to motion
--- NOTE | 2016-06-07 12:27 | Diagnostic Imaging Report ---
Indication: Head trauma Technique: The head was imaged in a 1.5 Brisa magnet. Sequences obtained include sagittal and axial T1 FLAIR, axial T2 fast spin echo with fat saturation, axial T2 FLAIR, diffusion and ADC map. Comparison: None Findings: The study is significantly degraded by motion There is mild prominence of the sulci, ventricles, and basal cisterns consistent with atrophy. Mild, nonspecific T2 hyperintensity noted within white matter. This may be due to chronic small vessel disease. There is no restricted diffusion. Barboza-white differentiation is normal. There is no mass effect, midline shift, edema, or hemorrhage. There are no abnormal extra-axial or intra-axial fluid collections. The corpus callosum and sella are unremarkable. The brainstem and cerebellum are unremarkable. Bone marrow signal within the visualized osseous structures appears age appropriate and unremarkable otherwise. Impression: No acute intracranial findings. Mild atrophy and evidence of chronic small vessel disease involving white matter tracts.
--- NOTE | 2016-06-07 13:37 | Diagnostic Imaging Report ---
Indication: Pain Comparison: None Findings: 3 views of the right foot were obtained. No acute fractures, malalignment, erosions or periostitis are identified. Bone mineralization is within normal limits. Soft tissues are unremarkable. Impression: Negative examination of the right foot.
--- NOTE | 2016-06-07 15:40 | Cardiology Report ---
APPROVED REPORT EXAM: Two-dimensional and M-mode echocardiogram with Doppler and color Doppler. INDICATION Altered Loc M-Mode DIMENSIONS IVSd0.7 (0.7-1.1cm)Left Atrium (MM)2.9 (1.6-4.0cm) LVDd4.4 (3.5-5.6cm)Aortic Root2.4 (2.0-3.7cm) PWd0.8 (0.7-1.1cm)Aortic Cusp Exc.1.5 (1.5-2.0cm) LVDs2.5 (2.5-4.0cm) PWs0.9 cm Technically difficult study due to poor acoustic windows. Normal left ventricular chamber size, systolic function and wall motion. Left ventricular ejection fraction estimated to be 60-65%. Mild left ventricular hypertrophy. No evidence of pericardial fat or effusion. Right cardiac chamber sizes are within normal limits. Moderate left atrial enlargement by 2D. Focal aortic valve sclerosis with adequate cusp excursion Thickened mitral valve leaflets with normal excursion. Mitral annulus and aortic root calcification. Pulmonic valve not well visualized. Normal tricuspid valve structure. IVC not obtainable. A color flow and spectral Doppler study was performed and revealed: No aortic regurgitation. Trace mitral regurgitation. Left ventricular diastolic dysfunction grade 1. No tricuspid regurgitation.
[2016-06-07 16:00] VITALS: BP 119/75
[2016-06-07 20:00] VITALS: BP 116/72
--- NOTE | 2016-06-07 20:32 | Pulmonology Progress Note ---
Assessment/Plan Assessment/Plan ASSESS: falls UTI prot bassem malnutrition likely RUL lung ca ho br ca copd GERD hypothy-TSH stable prob tierra-pt not complinant ho retinal hemorrhage, spont, not rel to NOAC dementia stable MRI/MRA-aneurysm not seen ho PE on NOAC h/op SVT mult med allergies PLAN: cipro pending cx result prob tx to [facility] tomorrow for pt ot pt eval here neuro eval appreciated. Subjective Constitutional: Reports: no symptoms HEENT: Repors: no symptoms Respiratory: Reports: no symptoms Gastrointestinal/Abdominal: Reports: nausea Allergies: Coded Allergies: MORPHINE (Verified Allergy, Unknown, 06/05/16) PENICILLINS (Verified Allergy, Unknown, 06/05/16) SULFA (SULFONAMIDE ANTIBIOTICS) (Verified Allergy, Unknown, 06/05/16) Uncoded Allergies: Demoral (Allergy, Unknown, 06/05/16) thimersol (Allergy, Unknown, 06/05/16) Objective Last 24 Hour Vital Signs Date Time Temp Pulse Resp B/P Pulse Ox O2 Delivery O2 Flow Rate FiO2 06/07/16 20:00 97.8 116 22 116/72 97 Room Air 06/07/16 19:41 114 18 Room Air 21 06/07/16 19:40 114 18 99 Room Air 21 06/07/16 19:39 114 18 99 Room Air 21 06/07/16 16:00 109 06/07/16 16:00 97.8 81 20 119/75 97 Room Air 06/07/16 12:00 108 06/07/16 11:19 97.1 108 18 144/78 98 Room Air 06/07/16 08:58 100/73 06/07/16 08:53 109 18 Room Air 21 06/07/16 08:53 109 19 98 Room Air 21 06/07/16 08:53 110 18 98 Room Air 21 06/07/16 08:00 106 06/07/16 07:51 96.4 110 18 100/73 98 Room Air 06/07/16 04:24 97.0 107 20 129/72 97 Room Air 06/07/16 04:00 105 06/07/16 00:34 98.0 100 20 105/66 97 Room Air 06/07/16 00:00 108 Intake and Output 06/06/16 06/07/16 19:00 07:00 Intake Total 360 ml Balance 360 ml Intake Oral 360 ml # Voids 1 2 General Appearance: WD/WN Respiratory/Chest: lungs clear Cardiovascular: normal rate, regular rhythm Abdomen: normal bowel sounds, soft, non tender Extremities: no edema Microbiology Date/Time Source Procedure Growth Status 06/05/16 21:26 Blood Blood Culture - Preliminary NO GROWTH AFTER 24 HOURS Resulted 06/05/16 21:16 Blood Blood Culture - Preliminary NO GROWTH AFTER 24 HOURS Resulted 06/05/16 20:30 Urine,Clean Catch Urine Culture - Preliminary Gram Negative Bacillus 1 Resulted Laboratory Tests 06/06/16 21:40: Erythrocyte Sedimentation Rate 105H, Hemoglobin A1c 4.8, Total Protein (PEP) [ Pending], Albumin (PEP) [Pending], Globulin (PEP) [Pending], Albumin/Globulin Ratio [Pending], [id number] [Pending], [id number]-3-[id number] [Pending], Beta Globulins [Pending], Beta Gamma Globulin [Pending], PEP Abnormal Protein Bands [ Pending], Protein Electrophoresis Interpret [Pending], Rapid Plasma Reagin [ Pending] Current Medications Medications (Trade) Dose Ordered Sig/Marco Route PRN Reason Start Time Stop Time Status Last Admin Dose Admin Acetaminophen (Tylenol) 500 mg Q6H PRN ORAL Mild Pain/Temp > 100.5 06/06/16 13:15 07/06/16 13:14 Albuterol/ Ipratropium (DuoNeb 0.5-3(2.5)mg/3ml) 3 ml Q4H PRN HHN Shortness of Breath 06/06/16 13:15 06/11/16 13:14 Aspirin (Ecotrin) 81 mg DAILY ORAL 06/06/16 09:00 07/06/16 08:59 06/07/16 08:55 Dabigatran (Pradaxa) 150 mg EVERY 12 HOURS ORAL 06/06/16 09:33 07/06/16 08:59 06/07/16 08:54 Guaifenesin/ Dextromethorphan (Robitussin DM) 5 ml Q4H PRN ORAL For Cough 06/06/16 10:45 07/06/16 10:44 06/07/16 08:59 Lisinopril (Zestril) 2.5 mg DAILY ORAL 06/06/16 09:00 07/06/16 08:59 06/06/16 09:14 Mirtazapine (Remeron) 15 mg BEDTIME ORAL 06/06/16 21:00 07/06/16 20:59 06/06/16 21:53 Salmeterol Xinafoate/ Fluticasone (Advair 250/50 Diskus) 1 puffs BID INH 06/06/16 09:00 07/06/16 08:59 06/07/16 19:39 Thyroid ([place] Thyroid) 60 mg DAILY ORAL 06/06/16 09:00 07/06/16 08:59 06/07/16 08:54 Tiotropium [place] (Spiriva Inhaler) 1 puff DAILY INH 06/06/16 09:00 07/06/16 08:59 06/07/16 09:45 THIEN MACDONALD 8, 2017 20:32
--- NOTE | 2016-06-07 21:18 | Neurology Progress Note ---
Interim History Interim History Interim History Ms. Florentino feels better today. She still cannot remember how she fell down. The mind is clearer. She did some walking earlier today and felt steady on her feet. She denies any new neurologic symptoms. Review of Systems Neuro Review of Systems Benign. Objective Physical Exam Last Vital Signs Date Time Temp Pulse Resp B/P Pulse Ox O2 Delivery O2 Flow Rate FiO2 06/07/16 20:00 97.8 116 22 116/72 97 Room Air 06/07/16 19:41 21 Laboratory Tests Test 06/06/16 21:40 Erythrocyte Sedimentation Rate 105 MM/HR (0-42) H Hemoglobin A1c 4.8 % (< 6.0) Total Protein (PEP) Pending Albumin (PEP) Pending Globulin (PEP) Pending Albumin/Globulin Ratio Pending Nmzpk-[id number] Pending Zyeds-5-Mqgjwillb Pending Beta Globulins Pending Beta Gamma Globulin Pending PEP Abnormal Protein Bands Pending Protein Electrophoresis Interpret Pending Rapid Plasma Reagin Pending Neurologic Exam Objective PHYSICAL EXAMINATION: GENERAL: She is a well-developed, well-nourished, lady, lying in bed , in no acute distress. HEAD: Normocephalic with right frontal aberration and right infraorbital aberration. NECK: No nuchal rigidity was observed. EENT: Benign. NEUROLOGICAL EXAMINATION: MENTAL STATUS EXAMINATION: She was alert and awake. She was oriented to [facility], [facility], and June 07, 2016. She was able to recall 3/3 words immediately, but could only remember 2/3 words in 1 minute and 3 minutes. She was able to remember presidents Trump and Obama, but could not remember presidents prior to that. Her mathematical skills were good Her visuospatial function was minimally impaired. SPEECH: She had no dysarthria. LANGUAGE: She had anomia for low-frequency words. CRANIAL NERVE EXAMINATION: II: The visual sears were intact to confrontation testing. III, IV & : The external ocular movements were full and the pupils 3 mm in diameter, equal, round, regular and reactive to light. V: She had normal facial sensations and the temporales, masseters, and pterygoids functioned normally. VII: She had normal facial expressions and no facial asymmetry. VIII: She was able to hear well bilaterally and had no nystagmus. IX: The palate moved symmetrically on phonation. X: She had no hoarseness of voice. XI: The sternocleidomastoids and trapezii functioned normally. XII: The tongue was in the midline without any fasciculations or atrophy. MOTOR SYSTEM: The tone was normal in all four extremities. Examination of muscle mass revealed some wasting of the small hand and foot muscles. Examination of power revealed grade 5/5 power except for grade 4++/5 power in the iliopsoas muscles bilaterally. SENSORY EXAMINATION: She had intact sensations to pinprick, light touch, and graphesthesia. Position sense was diminished in the toes bilaterally but was normal in the fingers bilaterally. COORDINATION: She performed well on fasnee-hw-ascd testing. She was unable to perform fupq-cf-zwds testing. REFLEXES: 1+ and bilaterally symmetrical at the biceps, triceps, and brachioradialis. Trace positive at both knees. 0 at both ankles. The plantar responses were flexor bilaterally. STANCE: She stood up with support. GAIT: She walked with support with a mildly paraparetic and stooped gait. Impression/Recommendations Diagnostic Impression 1. Ms. 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 She has recently been having frequent falls and she was hospitalized on 06/05/2016 a few days after a fall due to behavioral problems. 2. She feels better today. The mind is clearer and she has been able to walk better. 3. On neurological examination at this time, she does demonstrate problems with recent and remote memory, and language. She also has proximal lower extremity weakness, decreased position sense in the toes bilaterally, globally diminished deep tendon reflexes and a wide based stooped paraparetic gait. 4. The CT scan of the brain without contrast reveals no acute pathology, and no acute hemorrhage, but does reveal a left-sided coil. 5. An MRI scan of the brain reveals no acute pathology but does reveal atrophy and deep white matter changes. 6. Her laboratory data on my initial evaluation revealed that she had a leukocytosis with a WBC count of 11,000. She had mild anemia with a hemoglobin of 11.8. The chemistry panel revealed low albumin at 2.9, normal vitamin B12 level, normal TSH, and vitamin D level that is pending. The Urinalysis revealed 3+ leukocyte esterase, 10-15 red blood cells, and 40-60 white blood cells per high-power field and many urinary bacteria. 7. Her falls are most probably due to the mild proximal lower extremity weakness and mild distal sensory neuropathy. It is unclear if the acute UTI could have also contributed. 8. Her cognitive dysfunction is much better today and could be due to an underlying degenerative process with the superadded infection. Recommendations 1. Continue present management. 2. Treatment of her acute infectious process in an aggressive manner. 3. Physical and occupational therapy. 4. Increase activity as tolerated. Chris Bocanegra M.D., M.S.P.Iván. CHRIS BOCANEGRA Jun 07, 2016 21:18
[2016-06-07] MEDS: Ciprofloxacin 500mg tab ORAL SCH (22:16)
[2016-06-08 00:15] VITALS: BP 137/85
[2016-06-08 04:00] VITALS: BP 133/84
[2016-06-08 08:00] VITALS: BP 112/75
[2016-06-08 08:15] LABS: BASOPHILS % (AUTO) 0.8 % (0.0-2.0); LYMPHOCYTES % (AUTO) 25.5 % (20.0-45.0); MEAN CORPUSCULAR HEMOGLOBIN 26.6 PG (27.0-31.0); MEAN CORPUSCULAR HGB CONC 32.9 G/DL (32.0-36.0); MEAN CORPUSCULAR VOLUME 81 FL (80-99); MEAN PLATELET VOLUME 6.7 FL (6.5-10.1); MONOCYTES % (AUTO) 13.2 % (1.0-10.0); NEUTROPHILS % (AUTO) 58.4 % (45.0-75.0); PLATELET COUNT 356 K/UL (150-450); RED BLOOD COUNT 4.52 M/UL (4.20-5.40); RED CELL DISTRIBUTION WIDTH 13.8 % (11.6-14.8)
[2016-06-08] MEDS: Advair 250/50 Inhaler - 14 dose INH SCH ×2 (08:16→19:17)
[2016-06-08 08:35] LABS: ANION GAP 21 (5-15); CALCIUM 9.8 mg/dL (8.6-10.2); CARBON DIOXIDE 22 mEQ/L (20-30); CHLORIDE 95 mEQ/L (98-107); CREATININE 0.8 mg/dL (0.5-0.9); HEMOLYSIS 6; POTASSIUM 3.6 mEQ/L (3.4-4.9); SODIUM 138 mEQ/L (135-145)
[2016-06-08] MEDS: Lisinopril 2.5mg tab ORAL SCH (09:15)
[2016-06-08] MEDS: Aspirin EC 81mg tab ORAL SCH (09:15)
[2016-06-08] MEDS: Ciprofloxacin 500mg tab ORAL SCH (09:16)
--- NOTE | 2016-06-08 10:58 | Cardiology Report ---
APPROVED REPORT EKG Measurement Heart [id number] Sinus tachycardia Possible Left atrial enlargement Incomplete right bundle branch block Left anterior fascicular block Abnormal ECG
--- NOTE | 2016-06-08 11:10 | Pulmonology Progress Note ---
Assessment/Plan Assessment/Plan ASSESS: falls UTI--klebsiellla, sens to cipro (fox s3ens) prot bassem malnutrition likely RUL lung ca s/p xrt ho br ca copd GERD hypothy-TSH stable prob tierra-pt not complinant ho retinal hemorrhage, spont, not rel to NOAC dementia stable MRI/MRA-aneurysm not seen. s/p ICA coil ho PE on NOAC h/op SVT mult med allergies PLAN: cipro x 6 more d tx to [facility] today if bed available pt eval neuro eval appreciated. ziopatch o4r seeq patch as op will need cards fu alethea sullivan Subjective Allergies: Coded Allergies: MORPHINE (Verified Allergy, Unknown, 06/05/16) PENICILLINS (Verified Allergy, Unknown, 06/05/16) SULFA (SULFONAMIDE ANTIBIOTICS) (Verified Allergy, Unknown, 06/05/16) Uncoded Allergies: Demoral (Allergy, Unknown, 06/05/16) thimersol (Allergy, Unknown, 06/05/16) Subjective c/o persistent nausea nad feeling vaguely lousy but states no worse than usual. no appetite. Objective Last 24 Hour Vital Signs Date Time Temp Pulse Resp B/P Pulse Ox O2 Delivery O2 Flow Rate FiO2 06/08/16 09:15 112/75 06/08/16 08:19 107 16 Room Air 21 06/08/16 08:19 108 16 98 Room Air 21 06/08/16 08:19 107 16 97 Room Air 21 06/08/16 08:00 97.7 110 17 112/75 98 Room Air 93 06/08/16 04:00 102 06/08/16 04:00 97.0 102 20 133/84 96 Room Air 0 06/08/16 00:15 97.7 75 20 137/85 94 Room Air 06/08/16 00:00 112 06/07/16 20:00 97.8 116 22 116/72 97 Room Air 06/07/16 20:00 116 06/07/16 19:41 114 18 Room Air 21 06/07/16 19:40 114 18 99 Room Air 21 06/07/16 19:39 114 18 99 Room Air 21 06/07/16 16:00 109 06/07/16 16:00 97.8 81 20 119/75 97 Room Air 06/07/16 12:00 108 06/07/16 11:19 97.1 108 18 144/78 98 Room Air Intake and Output 06/07/16 06/08/16 19:00 07:00 Intake Total 420 ml 300 ml Output Total 300 ml Balance 420 ml 0 ml Intake Oral 420 ml 300 ml Output Urine Total 300 ml # Voids 1 1 Objective L forhead lesion healing well (yari) Respiratory/Chest: lungs clear Cardiovascular: normal rate, tachycardia Abdomen: normal bowel sounds, soft, non tender Extremities: no edema Microbiology Date/Time Source Procedure Growth Status 06/05/16 21:26 Blood Blood Culture - Preliminary NO GROWTH AFTER 48 HOURS Resulted 06/05/16 21:16 Blood Blood Culture - Preliminary NO GROWTH AFTER 48 HOURS Resulted 06/05/16 21:27 Nasal Nares MRSA Culture - Final NO METHICILLIN RESISTANT STAPH AUREUS... Complete 06/05/16 20:30 Urine,Clean Catch Urine Culture - Final Klebsiella Pneumoniae Complete 06/05/16 21:27 Rectum VRE Culture - Final NO VANCOMYCIN RESISTANT ENTEROCOCCUS ... Complete Laboratory Tests 06/08/16 06:55: White Blood Count 11.0H, Red Blood Count 4.52, Hemoglobin 12.0, Hematocrit 36.5L , Mean Corpuscular Volume 81, Mean Corpuscular Hemoglobin 26.6L, Mean Corpuscular Hemoglobin Concent 32.9, Red Cell Distribution Width 13.8, Platelet Count 356, Mean Platelet Volume 6.7, Neutrophils (%) (Auto) 58.4, Lymphocytes (% ) (Auto) 25.5, Monocytes (%) (Auto) 13.2H, Eosinophils (%) (Auto) 2.0, Basophils (%) (Auto) 0.8, Sodium Level 138, Potassium Level 3.6, Chloride Level 95L, Carbon Dioxide Level 22, Anion Gap 21H, Blood Urea Nitrogen 11, Creatinine 0.8, Estimat Glomerular Filtration Rate , Glucose Level 114H, Calcium Level 9.8 Current Medications Medications (Trade) Dose Ordered Sig/Marco Route PRN Reason Start Time Stop Time Status Last Admin Dose Admin Acetaminophen (Tylenol) 500 mg Q6H PRN ORAL Mild Pain/Temp > 100.5 06/06/16 13:15 07/06/16 13:14 Albuterol/ Ipratropium (DuoNeb 0.5-3(2.5)mg/3ml) 3 ml Q4H PRN HHN Shortness of Breath 06/06/16 13:15 06/11/16 13:14 Aspirin (Ecotrin) 81 mg DAILY ORAL 06/06/16 09:00 07/06/16 08:59 06/08/16 09:15 Ciprofloxacin (Cipro 500mg tab) 500 mg EVERY 12 HOURS ORAL 06/07/16 22:00 06/14/16 21:59 06/08/16 09:16 Dabigatran (Pradaxa) 150 mg EVERY 12 HOURS ORAL 06/06/16 09:33 07/06/16 08:59 06/08/16 09:17 Guaifenesin/ Dextromethorphan (Robitussin DM) 5 ml Q4H PRN ORAL For Cough 06/06/16 10:45 07/06/16 10:44 06/07/16 08:59 Lisinopril (Zestril) 2.5 mg DAILY ORAL 06/06/16 09:00 07/06/16 08:59 06/08/16 09:15 Mirtazapine (Remeron) 15 mg BEDTIME ORAL 06/06/16 21:00 07/06/16 20:59 06/07/16 21:20 Salmeterol Xinafoate/ Fluticasone (Advair 250/50 Diskus) 1 puffs BID INH 06/06/16 09:00 07/06/16 08:59 06/08/16 08:16 Thyroid ([place] Thyroid) 60 mg DAILY ORAL 06/06/16 09:00 07/06/16 08:59 06/08/16 09:15 Tiotropium Hester (Spiriva Inhaler) 1 puff DAILY INH 06/06/16 09:00 07/06/16 08:59 06/08/16 08:16 THIEN MACDONALD 9, 2017 11:10
[2016-06-08 12:00] VITALS: BP 119/70
[2016-06-08 13:15] LABS: A/G RATIO 0.5 (0.7-1.7); ABNORMAL PROTEIN BAND 1 Not Observed g/dL (Not Observed); ALBUMIN 2.3 g/dL (2.9-4.4); ALPHA-1 GLOBULIN 0.4 g/dL (0.0-0.4); ALPHA-2 GLOBULIN 0.9 g/dL (0.4-1.0); BETA GLOBULIN 1.2 g/dL (0.7-1.3); GAMMA GLOBULIN 2.3 g/dL (0.4-1.8); GLOBULIN, TOTAL 4.8 g/dL (2.2-3.9); TOTAL PROTEIN 7.1 g/dL (6.0-8.5)
[2016-06-08 16:00] VITALS: BP 102/70
[2016-06-08] MEDS ORDERED: Influenza Virus Vaccine 0.5ml IM ONE (16:30)
--- NOTE | 2016-06-08 20:26 | Neurology Progress Note ---
Interim History Interim History Interim History Ms. Florentino feels better today. Plans are to go to a rehab facility today. She still cannot remember the details of her fall. The mind is clearer. She did some walking earlier today and felt steadier on her feet. She denies any new neurologic symptoms. Review of Systems Neuro Review of Systems Benign. Objective Physical Exam Last Vital Signs Date Time Temp Pulse Resp B/P Pulse Ox O2 Delivery O2 Flow Rate FiO2 06/08/16 19:18 110 20 97 Room Air 21 06/08/16 16:00 102/70 06/08/16 12:00 97.5 Laboratory Tests Test 06/08/16 06:55 White Blood Count 11.0 K/UL (4.8-10.8) H Red Blood Count 4.52 M/UL (4.20-5.40) Hemoglobin 12.0 G/DL (12.0-16.0) Hematocrit 36.5 % (37.0-47.0) L Mean Corpuscular Volume 81 FL (80-99) Mean Corpuscular Hemoglobin 26.6 PG (27.0-31.0) L Mean Corpuscular Hemoglobin Concent 32.9 G/DL (32.0-36.0) Red Cell Distribution Width 13.8 % (11.6-14.8) Platelet Count 356 K/UL (150-450) Mean Platelet Volume 6.7 FL (6.5-10.1) Neutrophils (%) (Auto) 58.4 % (45.0-75.0) Lymphocytes (%) (Auto) 25.5 % (20.0-45.0) Monocytes (%) (Auto) 13.2 % (1.0-10.0) H Eosinophils (%) (Auto) 2.0 % (0.0-3.0) Basophils (%) (Auto) 0.8 % (0.0-2.0) Sodium Level 138 mEQ/L (135-145) Potassium Level 3.6 mEQ/L (3.4-4.9) Chloride Level 95 mEQ/L (98-107) L Carbon Dioxide Level 22 mEQ/L (20-30) Anion Gap 21 (5-15) H Blood Urea Nitrogen 11 mg/dL (7-23) Creatinine 0.8 mg/dL (0.5-0.9) Estimat Glomerular Filtration Rate mL/min (>60) Glucose Level 114 mg/dL (74-106) H Calcium Level 9.8 mg/dL (8.6-10.2) Neurologic Exam Objective PHYSICAL EXAMINATION: GENERAL: She is a well-developed, well-nourished, lady, lying in bed , in no acute distress. HEAD: Normocephalic with right frontal aberration and right infraorbital aberration. NECK: No nuchal rigidity was observed. EENT: Benign. NEUROLOGICAL EXAMINATION: MENTAL STATUS EXAMINATION: She was alert and awake. She was oriented to [facility], [facility], and June 08, 2016. She was able to recall 3/3 words immediately, but could only remember 2/3 words in 1 minute and 3 minutes. She was able to remember presidents Trump and Obama, but could not remember presidents prior to that. Her mathematical skills were good Her visuospatial function was minimally impaired. SPEECH: She had no dysarthria. LANGUAGE: She had anomia for low-frequency words. CRANIAL NERVE EXAMINATION: II: The visual sears were intact to confrontation testing. III, IV & : The external ocular movements were full and the pupils 3 mm in diameter, equal, round, regular and reactive to light. V: She had normal facial sensations and the temporales, masseters, and pterygoids functioned normally. VII: She had normal facial expressions and no facial asymmetry. VIII: She was able to hear well bilaterally and had no nystagmus. IX: The palate moved symmetrically on phonation. X: She had no hoarseness of voice. XI: The sternocleidomastoids and trapezii functioned normally. XII: The tongue was in the midline without any fasciculations or atrophy. MOTOR SYSTEM: The tone was normal in all four extremities. Examination of muscle mass revealed some wasting of the small hand and foot muscles. Examination of power revealed grade 5/5 power except for grade 4++/5 power in the iliopsoas muscles bilaterally. SENSORY EXAMINATION: She had intact sensations to pinprick, light touch, and graphesthesia. Position sense was diminished in the toes bilaterally but was normal in the fingers bilaterally. COORDINATION: She performed well on [id number]-op-gdez testing. She was unable to perform ktdz-po-fjnc testing. REFLEXES: 1+ and bilaterally symmetrical at the biceps, triceps, and brachioradialis. Trace positive at both knees. 0 at both ankles. The plantar responses were flexor bilaterally. STANCE & GAIT: Were deferred as did not feel like getting out of bed as she felt a little nauseous when she was made to sit up. Impression/Recommendations Diagnostic Impression 1. Ms. 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 She has recently been having frequent falls and she was hospitalized on 06/05/2016 a few days after a fall due to behavioral problems. 2. She feels better today. The mind is clearer and she has been able to walk better. 3. On neurological examination at this time, she does demonstrate problems with recent and remote memory, and language. She has proximal lower extremity weakness, decreased position sense in the toes bilaterally, globally diminished deep tendon reflexes and a wide based stooped paraparetic gait. 4. The CT scan of the brain without contrast reveals no acute pathology, and no acute hemorrhage, but does reveal a left-sided coil. 5. An MRI scan of the brain reveals no acute pathology but does reveal atrophy and deep white matter changes. 6. Her laboratory data on my initial evaluation revealed that she had a leukocytosis with a WBC count of 11,000. She had mild anemia with a hemoglobin of 11.8. The chemistry panel revealed low albumin at 2.9, normal vitamin B12 level, normal TSH, and vitamin D level that is pending. The Urinalysis revealed 3+ leukocyte esterase, 10-15 red blood cells, and 40-60 white blood cells per high-power field and many urinary bacteria. 7. Her falls are most probably due to the mild proximal lower extremity weakness and mild distal sensory neuropathy. It is unclear if the acute UTI could have also contributed. 8. Her cognitive dysfunction is much better today and could be due to an underlying degenerative process with the superadded infection. Recommendations 1. Continue present management. 2. Treatment of her acute infectious process in an aggressive manner. 3. Physical and occupational therapy. 4. Increase activity as tolerated. Chris Bocanegra M.D., M.S.P.H. CHRIS BOCANEGRA Jun 08, 2016 20:26
[2016-06-08] MEDS ORDERED: Dabigatran 150mg cap ORAL SCH (21:00)
--- NOTE | 2016-06-09 03:28 | Discharge Summary ---
DATE OF ADMISSION: 06/05/2016 DATE OF DISCHARGE: 06/08/2016 DISCHARGE DIAGNOSES: 1. Status post fall. 2. Deconditioning of poor balance. 3. 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 4. Urinary tract infection with Klebsiella pansensitive. 5. Dementia, stable. 6. Chronic sinus tachycardia. 7. History of supraventricular tachycardia. 8. History of pulmonary embolism. 9. Likely right upper lobe lung cancer, status post XRT. 10. Chronic obstructive pulmonary disease, stable. 11. Hypothyroidism. 12. History of breast cancer. HOSPITAL COURSE: The patient was sent to the hospital after she had fall at home and was noted to have an abrasion on her right forehead. She was brought to the [facility] emergency room and underwent a head CT, which showed a left supraclinoid metallic density, which was felt to represent her aneurysm coil as well as chronic age related changes. There was no acute bleed. The patient was admitted. Her urine grew Klebsiella and UA was consistent with urinary tract infection. This was treated with Cipro. The patient underwent neurological consultation by Dr. Chris Bocanegra. The patient was stable and is now ready to transfer to SNF for PT and OT. She will continue on Cipro for six more days. She will be followed by me at the SNF. 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 She did not have any activity on the surveillance monitor during her hospitalization. For medications, please see the medication list. Poornima Maldonado M.D. DR: Monik JOB#: [id number] CC:
[2016-06-09 10:22] LABS: VITAMIN D 25-OH TOTAL 70 ng/mL (.)
== END 2016-06-08 22:03 | DRG 74 ==
LOC: EDBD 18:23 → EMR 18:52 → 4W 19:55 → EDBEDREQ 20:37 → 2E 06-06
DX: G60.8 Other hereditary and idiopathic neuropathies (principal); E46 Unspecified protein-calorie malnutrition; I67.1 Cerebral aneurysm, nonruptured; F03.90 Unspecified dementia, unspecified severity, without behavioral disturbance, psychotic disturbance, mood disturbance, and anxiety; N39.0 Urinary tract infection, site not specified; H40.9 Unspecified glaucoma; J44.9 Chronic obstructive pulmonary disease, unspecified; Z85.3 Personal history of malignant neoplasm of breast; Z88.6 Allergy status to analgesic agent; Z88.0 Allergy status to penicillin; Z88.2 Allergy status to sulfonamides; Z88.8 Allergy status to other drugs, medicaments and biological substances; Z86.711 Personal history of pulmonary embolism; B96.1 Klebsiella pneumoniae [K. pneumoniae] as the cause of diseases classified elsewhere; Z91.81 History of falling; R26.89 Other abnormalities of gait and mobility; Z85.118 Personal history of other malignant neoplasm of bronchus and lung; Z92.3 Personal history of irradiation; K21.9 Gastro-esophageal reflux disease without esophagitis; S00.81XA Abrasion of other part of head, initial encounter; W19.XXXA Unspecified fall, initial encounter; E03.9 Hypothyroidism, unspecified; Z86.718 Personal history of other venous thrombosis and embolism; Z90.11 Acquired absence of right breast and nipple; Z87.891 Personal history of nicotine dependence; G47.33 Obstructive sleep apnea (adult) (pediatric); R53.1 Weakness; I44.4 Left anterior fascicular block; Z23 Encounter for immunization
CPT/HCPCS: 36415; 70450; 70544; 70551; 71010; 72128; 72131; 80048; 80053; 81003; 82306; 82550; 82607; 83036; 83880; 84165; 84443; 84484; 85025; 85610; 85651; 85730; 86592; 87040; 87081; 87086; 87181; 90471; 90715; 93005; 93306; 93880; 94640; 94664; J2405; J7620; Q2036